=== PATIENT | male | born 1960 | race Caucasian/White ===

== ENCOUNTER → 2016-06-18 | Outpatient (REF) | payer BC, OTHER ==
[2016-06-18 13:09] LABS: INR 0.88
--- NOTE | 2016-06-18 16:07 | CR ---
DATE OF CONSULTATION: 06/18/2016 CONSULTATION: Preoperative consultation. The patient will be undergoing urological surgery by Dr. Krishna consisting of cystoscopy, ureteroscopy, with laser lithotripsy and possible left ureteral stent placement at [facility] on 07/01/[address] Krishna. I was asked to see him for preoperative clearance. This patient is 56 years of age. He has a left ureteral stone and he will be undergoing the cystoscopy with the laser lithotripsy and possible left ureteral stent placement. The patient has been asymptomatic other than hematuria. He has a history of prior kidney stones. He has had four total. He also has a history of degenerative disc disease and lumbar spine with chronic back pain, hyperlipidemia, benign prostatic hypertrophy (BPH), as well as history of mitral valve prolapse, no mitral valve stenosis. He has been doing well since the last time I saw him other than the hematuria. He has had basically painless hematuria. He has not had any chest pain, chest pressure, shortness of breath, or chest discomfort with exertion. He has not had any palpitations or claudication symptoms. He is able to exercise over 4 metabolic equivalents (METs) without any difficulty. He also has not had any productive cough or wheezing. He does not have any history of sleep apnea. He also has not had any upper or lower extremity numbness or tingling are symptoms or symptoms of amaurosis fugax. PAST MEDICAL HISTORY: Is significant for: 1. Hyperlipidemia. 2. Mitral valve prolapse. 3. Nephrolithiasis. 4. Hyperlipidemia. 5. Benign prostatic hypertrophy (BPH). 6. Chronic back pain 7. Degenerative disc disease of lumbar spine. PAST SURGICAL HISTORY: Bilateral inguinal hernia repair 14 years ago. FAMILY HISTORY: Mother had hypertension, at age 62 from a pulmonary embolism. Father committed suicide at age 42. He has four brothers who are healthy. Denies any history of premature coronary artery disease or cancer in her family. SOCIAL HISTORY: Negative for smoking or continued alcohol use, maybe a beer here twice a week, sometimes mixed drink. No history of hepatitis, tuberculosis, HIV exposure, sexually transmitted disease, or IV drug use. He is , has three children. All his children are healthy. 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 ALLERGIES: No known drug allergies. REVIEW OF SYSTEMS: CONSTITUTIONAL: He has not had any constitutional symptoms such as fever, chills or night sweats. HEENT: Has not had any vision changes or double vision. Has not had any epistaxis or horseness. CARDIOVASCULAR: No chest pain, chest pressure, palpitations, shortness of breath, claudication symptoms. Does have a history of mitral valve prolapse. No mitral valve stenosis. No underlying congestive heart failure. RESPIRATORY: Denies any productive cough, hemoptysis increased wheezing or sputum production. No history of sleep apnea GASTROINTESTINAL (GI): Denies any nausea or vomiting, melena or hematochezia, hematemesis or change in bowel habits. GENITOURINARY: Denies any dysuria, polyuria, frequency, hesitancy. Has had some pain with hematuria and also recurrent nephrolithiasis. NEUROLOGICAL: No upper or lower extremity paresthesia, numbness or tingling. No seizure disorder, syncopal episode, transient ischemic attack (TIA) or cerebrovascular accident (CVA). HEMATOLOGY: No history of anemia. VASCULAR: No history of deep venous thrombosis (DVT) or pulmonary embolism PHYSICAL EXAMINATION: Reveals a 56-year-old male who does not appear to be in acute distress. Blood pressure 124/80, pulse 76, weight is 216, oxygen saturation 98% on room air, body mass index (BMI) 31. HEAD: Normocephalic, atraumatic. Sclerae is nonicteric. Extraocular muscles are intact. Throat is without any erythema or exudate. No buccal lesions. NECK: Supple without any jugular venous distention (JVD), thyromegaly, adenopathy or carotid bruits. HEART: S1, S2 without any murmurs, rubs or gallops, heaves, or thrills. I do not hear any murmur in the mitral area. LUNGS: Sounds are clear to auscultation without any wheezing, rales or rhonchi and also no dullness to percussion posteriorly. ABDOMEN: Soft, nontender. Bowel sounds present all four quadrants. No hepatic or splenic enlargement, aortic or renal bruits, pulsatile masses. EXTREMITIES: Without any significant pretibial ankle or pedal edema. NEUROLOGICAL EXAMINATION: He does not have any evidence of any deficits in the upper or lower extremities. He moves upper an lower extremities well without any decreased muscle. His cranial nerves II-XII are intact. There are no gross deficits present on examinations. He walks without any assisted device and there is no evidence of any tremor. LABORATORY: Have been ordered by Dr. Krishna. They are still pending. EKG that was performed on the patient showed a normal sinus rhythm with a heart rate of 70 beats per minute, showed leftward axis, showed no evidence of acute ST changes, and no evidence of left ventricular hypertrophy. IMPRESSION: The patient is a 56-year-old male who has a left ureteral stone. Patient will be undergoing surgery with cystoscopy, left ureteroscopy and laser lithotripsy with possible left ureteral stent placement at [facility] on 07/01/[address] Krishna. That is the tentative date. The patient is medically optimized to undergo this procedure. This is a low-risk procedure. The patient does not have any underlying coronary artery disease. He does have hyperlipidemia. He will take his Crestor the day before surgery. The rest of his medications will be held the morning of surgery. For his degenerative disc disease and his chronic pain, the meloxicam needs to be taken only as needed. He has been taking it regularly daily for a month. He needs to take it as needed now. For his benign prostatic hypertrophy (BPH), he can take his tamsulosin the night before the surgery.
== END ==
LOC: M LAB REF 12:32
PROVIDERS: ATTEND Internal Medicine
DX: N20.1 Calculus of ureter (principal)

== ENCOUNTER → 2016-06-24 | Outpatient (CLI) | payer BC, OTHER ==
[~2016-06-24] MED LIST: CRES5TAB PO; FISH120012 PO; FLOM5CAP PO; MULT1TAB10 PO
--- NOTE | 2016-06-24 15:00 | REP ---
Clinical: Preoperative assessment . Comparison: 03/09/2016 . Technique: PA and lateral. Findings: The mediastinum and cardiac silhouette are normal. The lung lopez are clear and without acute consolidation, effusion, or pneumothorax. The skeletal structures are intact and normal. Impression: 1. No acute cardiopulmonary process. Signed by John Branham MD 06/24/2016 02:51 P
== END ==
LOC: M WUC 14:33
PROVIDERS: ATTEND Urology
DX: Z01.818 Encounter for other preprocedural examination (principal); N20.1 Calculus of ureter

== ENCOUNTER → 2016-07-01 | Day surgery (SDC) | payer BC, OTHER ==
[~2016-07-01] VITALS: Ht 177.8 cm; Wt 95.3 kg
[~2016-07-01] MED LIST changes: +CONRAY-60 60% 50ML VIAL (Q9961) As Ordered ONE; +CONRAY-60 60% 50ML VIAL (Q9961) XX ONE; +GLUC1CAP9 PO; +LIDOCAINE 2% INJ 100 MG/5 ML SDV (FOR ANES.) As Ordered ONE; +LR 1,000 ML IV SCH; +MIDAZOLAM INJ 2 MG/2 ML VIAL (J2250) As Ordered ONE; +ONDANSETRON 4MG/2ML VIAL (J2405) As Ordered ONE; +ONDANSETRON 4MG/2ML VIAL (J2405) IV PRN; +PERCOCET 5MG/325MG TAB PO PRN; +PROPOFOL 200 MG/20 ML VIAL As Ordered ONE; +VITA200016 PO; +dexameTHASONE 4 MG/ML 1ML VIAL (J1100) As Ordered ONE; +fentaNYL 100 MCG/2 ML INJECTION (J3010) IV PRN; +fentaNYL 250 MCG/5 ML INJECTION (J3010) As Ordered ONE; +oxyBUTYnin 5 MG TAB PO PRN
--- NOTE | 2016-07-01 16:31 | REP ---
Retrograde pyelogram: Three views: History: Nephrolithiasis. 19 seconds of fluoroscopy time is reported. Findings: A sequence of three fluoroscopically obtained last image hold radiographs of the abdomen document ureteral cannulation contrast injection and double pigtail ureteral stenting. This appears to be left-sided although no laterality markers are included with the images. Signed by Km Santos MD 07/01/2016 05:24 P
[2016-07-01 17:15] VITALS: BP 106/68
--- NOTE | 2016-07-02 06:40 | RO ---
DATE OF PROCEDURE: 07/01/2016 PREPROCEDURE DIAGNOSIS: Left ureteral stone. POSTPROCEDURE DIAGNOSIS: Left ureteral stone. PROCEDURE: Cystoscopy, left ureteroscopy, basket extraction of stone, left retrograde pyelogram with intraoperative interpretation of images, left ureteral stent placement. SURGEON: Christopher Krishna MD PCU RN: None. ANESTHESIA: General. OPERATIVE INDICATIONS: This is a 56-year-old male who was recently found to have a 6-7 mm left ureteral stone. He was given a trial to pass it and was unable to pass the stone. He was brought to the operating room today for removal of the stone. DESCRIPTION OF PROCEDURE: The patient was brought to the operating room and general anesthesia was induced. Prophylactic antibiotics were infused. He was then placed in a dorsal lithotomy position and prepped and draped in the usual sterile fashion. A rigid cystoscope was inserted into the urethral meatus and advanced to the bladder. Next, a guidewire was advanced up the left collecting system and secured to the drapes to serve as a safety wire. We then went in the ureter with a short semi rigid ureteroscope and at the ureterovesical junction the 7 mm stone was seen. We then utilized a basket to remove the stone and while removing the stone it fragmented into several smaller pieces. We went back and forth into the ureter and made sure that all of the pieces were removed with the basket. Once all the stones had been removed, the retrograde pyelogram was performed and it was notable for moderate to severe left hydroureteronephrosis. There was no extravasation. At this point, the ureteroscope was removed and the wire was utilized to place a 6-Italian x 22-32 cm JJ ureteral stent. The wire was then removed and there were adequate curls of the stent in the left renal pelvis and in the bladder. The bladder was then emptied of all fluid and this marked conclusion of the procedure. The patient was then taken out of the dorsal lithotomy position, awakened from anesthesia and transported to the recovery room in stable condition. Estimated blood loss: 0 mL. Complications: None. Specimen: Kidney stone fragments. Plan: The patient will be brought back to see me in the clinic, probably 3-4 weeks for stent removal.
== END | disposition home or self-care (01) ==
LOC: M SDC 09:38
PROVIDERS: ATTEND Urology
DX: N20.1 Calculus of ureter (principal); N20.0 Calculus of kidney; E78.5 Hyperlipidemia, unspecified; Z79.899 Other long term (current) drug therapy
CPT/HCPCS: 52332; 52352; 74420; 82360; 88300; C2617; J0690; J1100; J2250; J2405; J3010; Q9961

== ENCOUNTER → 2021-03-26 | Outpatient (CLI) | payer BC, OTHER ==
[~2021-03-26] MED LIST changes: +CIDA500T2 PO; -CONRAY-60 60% 50ML VIAL (Q9961) As Ordered ONE; -CONRAY-60 60% 50ML VIAL (Q9961) XX ONE; +CRES10TA PO; +D31000TA2 PO; +FLOM0.4C39 PO; -FLOM5CAP PO; -LIDOCAINE 2% INJ 100 MG/5 ML SDV (FOR ANES.) As Ordered ONE; -LR 1,000 ML IV SCH; -MIDAZOLAM INJ 2 MG/2 ML VIAL (J2250) As Ordered ONE; -ONDANSETRON 4MG/2ML VIAL (J2405) As Ordered ONE; -ONDANSETRON 4MG/2ML VIAL (J2405) IV PRN; -PERCOCET 5MG/325MG TAB PO PRN; -PROPOFOL 200 MG/20 ML VIAL As Ordered ONE; +VITMTA PO; -dexameTHASONE 4 MG/ML 1ML VIAL (J1100) As Ordered ONE; -fentaNYL 100 MCG/2 ML INJECTION (J3010) IV PRN; -fentaNYL 250 MCG/5 ML INJECTION (J3010) As Ordered ONE; -oxyBUTYnin 5 MG TAB PO PRN
== END ==
LOC: M LABSMTC 10:01
PROVIDERS: ATTEND Anesthesiology
DX: Z01.812 Encounter for preprocedural laboratory examination (principal); Z20.822 Contact with and (suspected) exposure to COVID-19

== ENCOUNTER 2021-03-31 09:38 | Day surgery (SDC) | payer BC, OTHER ==
[~2021-03-31] VITALS: Ht 177.8 cm; Wt 101.6 kg
[~2021-03-31 09:38] MED LIST changes: +NS 1,000 ML IV ONE
[2021-03-31 12:08] VITALS: BP 126/80
== END 2021-03-31 12:10 | disposition home or self-care (01) ==
LOC: M OPP 09:38
PROVIDERS: ATTEND Internal Medicine Gastroenterology
DX: Z12.11 Encounter for screening for malignant neoplasm of colon (principal); Z86.010 Personal history of colon polyps; K63.5 Polyp of colon; K57.30 Diverticulosis of large intestine without perforation or abscess without bleeding; K64.8 Other hemorrhoids; Z79.899 Other long term (current) drug therapy

== ENCOUNTER 2022-09-15 08:39 | Emergency (ER) | payer BC, OTHER ==
[~2022-09-15] VITALS: Ht 177.8 cm; Wt 101.0 kg
[~2022-09-15 08:39] MED LIST changes: -D31000TA2 PO; -NS 1,000 ML IV ONE; +VITA100093 PO
[2022-09-15 10:04] LABS: APPEARANCE, URINE HAZY (CLEAR); BACTERIA, URINE AUTO NEGATIVE (NEGATIVE); BILIRUBIN, URINE AUTO NEGATIVE (NEGATIVE); BLOOD, URINE BLOOD NEGATIVE (NEGATIVE); COLOR, URINE YELLOW (YELLOW); GLUCOSE, URINE (UA) AUTO NEGATIVE (NEGATIVE); KETONE, URINE AUTO 2+ mg/dL (NEGATIVE); LEUKOCYTE ESTERASE, URINE AUTO NEGATIVE (NEGATIVE); MUCUS, URINE SMALL (NEGATIVE); NITRITE, URINE AUTO NEGATIVE (NEGATIVE); PROTEIN, URINE AUTO NEGATIVE (NEGATIVE); RBC, URINE AUTO 12 /HPF (0-3); SPECIFIC GRAVITY URINE AUTO 1.015 (1.002-1.035); SQUAMOUS EPITHELIAL CELL UR AU 0 /HPF (0-6); UROBILINOGEN, URINE AUTO 0.2 mg/dL (0.0-2.0); WBC, URINE AUTO 5 /HPF (0-3)
[2022-09-15] MEDS ORDERED: CYCL-707 (10:04)
[2022-09-15 10:15] LABS: HEMATOCRIT 41.4 % (42.0-52.0); HEMOGLOBIN 14.4 g/dl (13.5-17.5); MEAN CORPUSCULAR HEMOGLOBIN 32.4 pg (27.0-33.0); MEAN CORPUSCULAR HGB CONC 34.8 g/dl (32.0-36.5); MEAN CORPUSCULAR VOLUME 93.2 fl (80.0-96.0); PLATELET COUNT, AUTOMATED 372 10^3/uL (150-450); RED BLOOD COUNT 4.44 10^6/uL (4.30-6.10); WHITE BLOOD COUNT 7.1 10^3/uL (4.0-10.0)
[2022-09-15] MEDS ORDERED: ONDANSETRON 4MG 2ML VIAL IV ONE (10:15)
[2022-09-15] MEDS ORDERED: KETOROLAC 30 MG/ML 1ML VIAL IV ONE (10:15)
[2022-09-15 10:41] LABS: ATYPICAL LYMPH 1 % (0-5); LYMPHOCYTES 13 % (16-44); MONOCYTES 8 % (0-5); NEUTROPHILS 74 % (28-66)
[2022-09-15 10:42] LABS: BLOOD UREA NITROGEN 13 MG/DL (9-23); CARBON DIOXIDE LEVEL 22 MMOL/L (20-31); CHLORIDE LEVEL 105 MMOL/L (98-107); CREATININE FOR GFR 1.01 MG/DL (0.70-1.30); GLOMERULAR FILTRATION RATE > 60.0 (>49); GLUCOSE, FASTING 115 MG/DL (74-106); PLATELET ESTIMATE NORMAL (NORMAL); POTASSIUM SERUM 4.5 MMOL/L (3.5-5.1); SODIUM LEVEL 138 MMOL/L (136-145)
[2022-09-15] MEDS ORDERED: ONDA4TAB6 PO (12:52)
[2022-09-15] MEDS ORDERED: KETO10TAB PO (12:52)
[2022-09-15] MEDS ORDERED: HYDR-3713 PO (12:52)
[2022-09-15 13:03] VITALS: BP 128/66
== END 2022-09-15 13:06 | disposition home or self-care (01) ==
LOC: M ED 08:39
DX: N20.1 Calculus of ureter (principal); Z87.442 Personal history of urinary calculi; Z79.899 Other long term (current) drug therapy
CPT/HCPCS: 74176; 80048; 81001; 85025; 96374; 96375; 99284; J1885; J2405

== ENCOUNTER → 2022-10-02 | Outpatient (CLI) | payer BC, OTHER ==
[~2022-10-02] MED LIST changes: +CYCL-707; +HYDR-3713 PO; +KETO10TAB PO; +ONDA4TAB6 PO
== END ==
LOC: M PLAIMG 06:40
PROVIDERS: ATTEND Chiropractor
DX: M51.26 Other intervertebral disc displacement, lumbar region (principal); M47.816 Spondylosis without myelopathy or radiculopathy, lumbar region

== ENCOUNTER → 2022-10-20 | Outpatient (REF) | payer BC, OTHER ==
[2022-10-23 20:07] LABS: CA Oxalate Dihy 90 % (.); Ca Ox Monohydrate 10 % (.); Size <1 mm (.)
== END ==
LOC: M SMT 11:43
PROVIDERS: ATTEND Physician Assistant
DX: N20.0 Calculus of kidney (principal)

== ENCOUNTER → 2023-04-16 | Outpatient (CLI) | payer BC, OTHER | LOC: M WUC 09:50 | PROVIDERS: ATTEND Physician Assistant | DX: N20.0 Calculus of kidney (principal) ==

== ENCOUNTER → 2023-10-11 | Outpatient (CLI) | payer BC, OTHER, MEDICARE ==
[~2023-10-11] MED LIST changes: +ONDA-282 PO; -ONDA4TAB6 PO
== END ==
LOC: M WUC 14:03
PROVIDERS: ATTEND Physician Assistant
DX: N20.0 Calculus of kidney (principal)

== ENCOUNTER 2024-03-13 06:51 | Emergency (ER) | payer MEDICARE, BC ==
[~2024-03-13] VITALS: Ht 177.8 cm; Wt 102.0 kg
[2024-03-13 07:30] LABS: BASO % 0.3 % (0.0-1.0); EOS # 0.1 10^3/uL (0.0-0.5); EOS % 0.9 % (0.0-3.0); HEMATOCRIT 38.6 % (42.0-52.0); HEMOGLOBIN 13.4 g/dl (13.5-17.5); LYMPH # 1.5 10^3/uL (1.5-5.0); LYMPH % 14.7 % (24.0-44.0); MEAN CORPUSCULAR HEMOGLOBIN 32.1 pg (27.0-33.0); MEAN CORPUSCULAR HGB CONC 34.7 g/dl (32.0-36.5); MEAN CORPUSCULAR VOLUME 92.3 fl (80.0-96.0); MONO # 0.6 10^3/uL (0.0-0.8); MONO % 5.9 % (2.0-8.0); NEUTROPHILS # 7.7 10^3/uL (1.5-8.5); PLATELET COUNT, AUTOMATED 320 10^3/uL (150-450); RED BLOOD COUNT 4.18 10^6/uL (4.30-6.10); WHITE BLOOD COUNT 9.9 10^3/uL (4.0-10.0)
[2024-03-13] MEDS: ONDANSETRON 4MG 2ML VIAL IV ONE (07:34)
[2024-03-13] MEDS: KETOROLAC 30 MG/ML 1ML VIAL IV ONE ×2 (07:34→10:05)
[2024-03-13 08:26] LABS: BLOOD UREA NITROGEN 18 MG/DL (9-23); CARBON DIOXIDE LEVEL 22 MMOL/L (20-31); CHLORIDE LEVEL 109 MMOL/L (98-107); CREATININE FOR GFR 0.78 MG/DL (0.70-1.30); GLOMERULAR FILTRATION RATE > 60.0 (>49); GLUCOSE, FASTING 128 MG/DL (74-106); SODIUM LEVEL 137 MMOL/L (136-145)
[2024-03-13] MEDS ORDERED: MELO15TA28 PO (10:34)
[2024-03-13] MEDS ORDERED: ROSU10TA61 PO (10:34)
[2024-03-13] MEDS ORDERED: NEUR300C PO (10:34)
[2024-03-13] MEDS ORDERED: THERTAB19 PO (10:34)
[2024-03-13] MEDS ORDERED: HOME MED LIST COMPLETE! XX SCH (10:35)
[2024-03-13] MEDS ORDERED: PERC5TAB12 PO (10:39)
[2024-03-13 10:50] VITALS: BP 144/70; TEMP 97.5; O2SAT 99
== END 2024-03-13 10:51 | disposition home or self-care (01) ==
LOC: M ED 06:51
DX: N21.1 Calculus in urethra (principal); E78.5 Hyperlipidemia, unspecified; Z87.442 Personal history of urinary calculi; I25.84 Coronary atherosclerosis due to calcified coronary lesion; K76.0 Fatty (change of) liver, not elsewhere classified; K57.30 Diverticulosis of large intestine without perforation or abscess without bleeding; Z79.899 Other long term (current) drug therapy
CPT/HCPCS: 74176; 80048; 81001; 84132; 85025; 87086; 96374; 96375; 96376; 99284; J1885; J2405

== ENCOUNTER → 2024-03-27 | Outpatient (REF) | payer MEDICARE, BC ==
[~2024-03-27] MED LIST changes: +D 101000 PO; +GABA-284 PO; +MELO15TA28 PO; +NEUR300C PO; +PERC5TAB12 PO; +ROSU10TA61 PO; +THERTAB19 PO; +VITA500C22 PO
[2024-03-27 17:29] LABS: AMORPHOUS SEDIMENT SMALL (NEGATIVE); APPEARANCE, URINE CLEAR (CLEAR); BACTERIA, URINE AUTO NEGATIVE (NEGATIVE); BILIRUBIN, URINE AUTO NEGATIVE (NEGATIVE); BLOOD, URINE BLOOD 2+ (NEGATIVE); COLOR, URINE YELLOW (YELLOW); GLUCOSE, URINE (UA) AUTO NEGATIVE (NEGATIVE); KETONE, URINE AUTO NEGATIVE (NEGATIVE); LEUKOCYTE ESTERASE, URINE AUTO NEGATIVE (NEGATIVE); MUCUS, URINE SMALL (NEGATIVE); NITRITE, URINE AUTO NEGATIVE (NEGATIVE); PROTEIN, URINE AUTO NEGATIVE (NEGATIVE); RBC, URINE AUTO TNTC /HPF (0-3); SPECIFIC GRAVITY URINE AUTO 1.015 (1.002-1.035); SQUAMOUS EPITHELIAL CELL UR AU 0 /HPF (0-6); UROBILINOGEN, URINE AUTO 0.2 mg/dL (0.0-2.0); WBC, URINE AUTO 3 /HPF (0-3)
== END ==
LOC: M LAB REF 16:20
PROVIDERS: ATTEND Internal Medicine
DX: Z01.818 Encounter for other preprocedural examination (principal)

== ENCOUNTER → 2024-03-27 | Outpatient (CLI) | payer MEDICARE, BC | LOC: M WUC 09:02 | PROVIDERS: ATTEND Physician Assistant | DX: Z01.818 Encounter for other preprocedural examination (principal) ==

== ENCOUNTER 2024-04-05 07:25 | Day surgery (SDC) | payer MEDICARE, BC ==
[~2024-04-05] VITALS: Ht 180.3 cm; Wt 100.2 kg
[2024-04-05] MEDS ORDERED: MIDAZOLAM INJ 2MG/2ML VIAL As Ordered ONE (07:54)
[2024-04-05] MEDS ORDERED: fentaNYL 100 MCG/2 ML INJECTION As Ordered ONE (07:54)
[2024-04-05] MEDS ORDERED: LIDOCAINE 2% 100MG/5ML SDV (FOR ANES.) As Ordered ONE (07:56)
[2024-04-05] MEDS ORDERED: propofoL 200 MG/20 ML VIAL As Ordered ONE (07:56)
[2024-04-05] MEDS ORDERED: ONDANSETRON 4MG 2ML VIAL As Ordered ONE (07:57)
[2024-04-05] MEDS ORDERED: LIDOCAINE 1% SDV 5ML VIAL SC PRN (08:15)
[2024-04-05] MEDS ORDERED: NS 1,000 ML IV SCH ×2 (08:15→10:20)
[2024-04-05] MEDS: SCOPOLAMINE 1MG TRANSDERMAL PATCH TOP ONE (08:28)
[2024-04-05] MEDS ORDERED: ACETAMINOPHEN 1000MG/100ML IV BAG As Ordered ONE (08:50)
[2024-04-05] MEDS: ceFAZolin SOD 2 GM in IV 1 EA IV ONE (09:08)
[2024-04-05] MEDS: ISOVUE-300 61% 100ML VIAL As Ordered ONE (09:30)
[2024-04-05] MEDS ORDERED: HYDROMORPHONE HCL 0.5 MG/ 0.5 ML SYRINGE IV PRN (10:20)
[2024-04-05] MEDS ORDERED: oxyCODONE 5MG TAB PO PRN (10:20)
[2024-04-05] MEDS ORDERED: ONDANSETRON 4MG 2ML VIAL IV PRN (10:20)
[2024-04-05] MEDS ORDERED: fentaNYL 100 MCG/2 ML INJECTION IV PRN (10:20)
[2024-04-05 11:28] VITALS: BP 140/86; TEMP 97; O2SAT 96
== END 2024-04-05 12:03 | disposition home or self-care (01) ==
LOC: M SDC 07:25
PROVIDERS: ATTEND Urology
DX: N20.2 Calculus of kidney with calculus of ureter (principal); E78.5 Hyperlipidemia, unspecified; M48.061 Spinal stenosis, lumbar region without neurogenic claudication; N40.0 Benign prostatic hyperplasia without lower urinary tract symptoms; Z79.899 Other long term (current) drug therapy
CPT/HCPCS: 52356; 76000; 82365; C1769; C1894; C2617; J0131; J0690; J1100; J2250; J2405; J3010; Q9967

== ENCOUNTER 2024-04-13 02:12 | Emergency (ER) | payer MEDICARE, BC ==
[~2024-04-13] VITALS: Ht 177.8 cm; Wt 98.2 kg
[2024-04-13 02:15] VITALS: TEMP 97.4
[2024-04-13] MEDS: ONDANSETRON 4MG 2ML VIAL IV ONE (03:20)
[2024-04-13] MEDS: KETOROLAC 30 MG/ML 1ML VIAL IV ONE (03:20)
[2024-04-13 03:37] LABS: BASO # 0.1 10^3/uL (0.0-0.2); BASO % 0.6 % (0.0-1.0); EOS # 0.2 10^3/uL (0.0-0.5); EOS % 2.9 % (0.0-3.0); HEMATOCRIT 40.4 % (42.0-52.0); HEMOGLOBIN 13.8 g/dl (13.5-17.5); LYMPH # 1.8 10^3/uL (1.5-5.0); LYMPH % 21.1 % (24.0-44.0); MEAN CORPUSCULAR HEMOGLOBIN 31.8 pg (27.0-33.0); MEAN CORPUSCULAR HGB CONC 34.2 g/dl (32.0-36.5); MEAN CORPUSCULAR VOLUME 93.1 fl (80.0-96.0); MONO # 0.8 10^3/uL (0.0-0.8); NEUTROPHILS # 5.4 10^3/uL (1.5-8.5); NEUTROPHILS % 64.9 % (36.0-66.0); PLATELET COUNT, AUTOMATED 350 10^3/uL (150-450); RED BLOOD COUNT 4.34 10^6/uL (4.30-6.10); WHITE BLOOD COUNT 8.4 10^3/uL (4.0-10.0)
[2024-04-13 03:59] LABS: LIPASE 46 U/L (12-53)
[2024-04-13 04:05] LABS: ALBUMIN 3.7 G/DL (3.2-5.2); ALKALINE PHOSPHATASE 88 U/L (40-129); ALT/SGPT 25 U/L (7.0-40); AST/SGOT 18 U/L (<34); BILIRUBIN,DIRECT < 0.1 MG/DL (<0.4); BILIRUBIN,TOTAL 0.3 MG/DL (0.3-1.2); BLOOD UREA NITROGEN 26 MG/DL (9-23); CALCIUM LEVEL 10.1 MG/DL (8.3-10.6); CARBON DIOXIDE LEVEL 24 MMOL/L (20-31); CHLORIDE LEVEL 104 MMOL/L (98-107); CREATININE FOR GFR 1.02 MG/DL (0.70-1.30); GLOMERULAR FILTRATION RATE > 60.0 (>49); GLUCOSE, FASTING 116 MG/DL (74-106); POTASSIUM SERUM 4.4 MMOL/L (3.5-5.1); SODIUM LEVEL 138 MMOL/L (136-145); TOTAL PROTEIN 7.1 G/DL (5.7-8.2)
[2024-04-13] MEDS ORDERED: KETO10TAB PO (05:10)
[2024-04-13] MEDS ORDERED: CEFD1CAP9 PO (05:10)
[2024-04-13] MEDS: cefTRIAXone SOD 2 GM in DEXTROSE 5% (D5W) ADV/MINI-BAG 50 ML IV ONE (05:17)
[2024-04-13 05:50] VITALS: BP 114/66; O2SAT 93
== END 2024-04-13 05:59 | disposition home or self-care (01) ==
LOC: M ED 02:12
DX: R10.9 Unspecified abdominal pain (principal); E78.5 Hyperlipidemia, unspecified; M19.90 Unspecified osteoarthritis, unspecified site; Z87.442 Personal history of urinary calculi; Z79.899 Other long term (current) drug therapy
CPT/HCPCS: 74176; 80048; 80076; 81001; 83605; 83690; 85025; 87086; 93041; 96365; 96375; 99284; J0696; J1885; J2405

== ENCOUNTER → 2024-08-17 | Outpatient (REF) | payer MEDICARE, OTHER ==
[~2024-08-17] MED LIST changes: +CEFD1CAP9 PO
== END ==
LOC: M LAB REF 13:50
PROVIDERS: ATTEND Physician Assistant Medical
DX: R51.9 Headache, unspecified (principal)

== ENCOUNTER → 2024-08-18 | Outpatient (CLI) | payer MEDICARE, BC | LOC: M PLARAD 13:56 | PROVIDERS: ATTEND Physician Assistant Medical | DX: G50.1 Atypical facial pain (principal); J32.2 Chronic ethmoidal sinusitis ==

== ENCOUNTER → 2024-12-15 | Outpatient (CLI) | payer MEDICARE, BC ==
[~2024-12-15] MED LIST changes: -FLOM0.4C39 PO; +TAMS-18 PO
== END ==
LOC: M RAD 06:33
PROVIDERS: ATTEND Orthopaedic Surgery
DX: M54.50 Low back pain, unspecified (principal); M48.061 Spinal stenosis, lumbar region without neurogenic claudication; M51.46 Schmorl's nodes, lumbar region